=== PATIENT | female | born 1995 | race Caucasian/White ===

== ENCOUNTER 2021-09-29 18:21 | Emergency (ER) | payer MEDICAID, OTHER ==
[2021-09-29] MEDS ORDERED: Sodium Chloride 0.9% 1,000 ML IV ONE (19:19)
[2021-09-29] MEDS ORDERED: Ondansetron 4 MG/2 ML SDV IVPUSH ONE (19:20)
[2021-09-29 19:30] LABS: CHLORIDE,CL 105 mmol/L (98-107); SODIUM,NA 135 mmol/L (136-145)
[2021-09-29] MEDS ORDERED: Potassium Chloride 20 MEQ Tab.ER PO ONE ×2 (19:42→20:01)
--- NOTE | 2021-09-29 19:50 | EDM.PDOC ---
ED HPI GENERAL MEDICAL PROBLEM - General Chief Complaint: General Stated Complaint: fever, chills, sinus congestion Time Seen by Provider: 09/29/21 19:00 Source of Information: Reports: Patient History Limitations: Reports: No Limitations - History of Present Illness INITIAL COMMENTS - FREE TEXT/NARRATIVE: One week history of mild URI/cold symptoms and intermittent nausea. Headache. Developed low grade fever as high as 101.5 starting yesterday. No other reported changes. 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 Social & Family History - Tobacco Use Tobacco Use Status *Q: Former Tobacco User Years of Tobacco use: 3 Used Tobacco, but Quit: Yes Month/Year Tobacco Last Used: 1 - Caffeine Use Caffeine Use: Reports: Coffee, Energy Drinks, Soda - Recreational Drug Use Recreational Drug Use: No ED ROS GENERAL - Review of Systems Review Of Systems: See Below Constitutional: Reports: Fever. Denies: Chills, Malaise, Weakness, Fatigue, Night Sweats, Diaphoresis, Decreased Appetite HEENT: Reports: Rhinitis, Sinus Problem. Denies: Ear Pain, Eye Discharge, Eye Pain, Throat Pain, Throat Swelling Respiratory: Reports: No Symptoms. Denies: Shortness of Breath, Wheezing, Pleuritic Chest Pain, Cough, Sputum, Hemoptysis Cardiovascular: Reports: No Symptoms. Denies: Chest Pain, Lightheadedness GI/Abdominal: Reports: Nausea. Denies: Abdominal Pain, Constipation, Diarrhea, Melena, Vomiting : Reports: Other (some recent vaginal itching). Denies: Dysuria, Flank Pain, Frequency Musculoskeletal: Reports: No Symptoms Skin: Reports: No Symptoms Neurological: Reports: Headache. Denies: Dizziness, Numbness, Tremors, Trouble Speaking, Difficulty Walking, Change in Speech Psychiatric: Reports: No Symptoms Hematologic/Lymphatic: Reports: No Symptoms ED EXAM, GENERAL - Physical Exam Exam: See Below Exam Limited By: No Limitations General Appearance: Alert, WD/WN, No Apparent Distress Eye Exam: Bilateral Eye: EOMI, PERRL Ears: Normal External Exam, Normal Canal, Hearing Grossly Normal Nose: No: Nasal Deformity, Nasal Swelling, Nasal Drainage Throat/Mouth: Normal Inspection, Normal Lips, Normal Voice, No Airway Compromise Head: Atraumatic, Normocephalic Neck: Normal Inspection, Supple, Non-Tender, Full Range of Motion Respiratory/Chest: No Respiratory Distress, Lungs Clear, Normal Breath Sounds, No Accessory Muscle Use, Chest Non-Tender Cardiovascular: No Edema, No Murmur, Tachycardia GI/Abdominal: Normal Bowel Sounds, Soft, Non-Tender, No Distention (Female) Exam: Deferred Rectal (Female) Exam: Deferred Back Exam: No: CVA Tenderness (L), CVA Tenderness (R), Muscle Spasm, Paraspinal Tenderness, Vertebral Tenderness Extremities: Normal Inspection, Normal Range of Motion, Non-Tender, Normal Capillary Refill Neurological: Alert, Oriented, CN II-XII Intact, Normal Cognition, Normal Gait, No Motor/Sensory Deficits Psychiatric: Normal Affect, Normal Mood Skin Exam: Warm, Dry, Intact, Normal Color Course - Vital Signs Last Recorded V/S: Last Vital Signs Temp 37.4 C 09/29/21 18:43 Pulse 86 09/29/21 19:45 Resp 19 09/29/21 19:45 BP 115/70 09/29/21 19:45 Pulse Ox 100 09/29/21 19:45 - Orders/Labs/Meds Orders: Active Orders 24 hr Category Date Time Status Ang Head wo Cont [MR] Stat Exams 09/29/21 19:01 Stop Req Head wo Cont [CT] Stat Exams 09/29/21 19:01 Taken Head wo Cont [CT] Stat Exams 09/29/21 19:21 Ordered Potassium Chloride [Klor-Con 10] Med 09/29/21 21:00 Once 20 meq PO ONETIME ONE Isolation [COMM] Routine Oth 09/29/21 18:29 Active Isolation [COMM] Routine Oth 09/29/21 18:29 Active Medication Orders Potassium Chloride (Potassium Chloride 10 Meq Tab.Er) 20 meq PO ONETIME ONE Stop: 09/29/21 21:01 Last Admin: 09/29/21 20:47 Dose: 20 meq Documented by: Labs: Laboratory Tests 09/29/21 09/29/21 09/29/21 Range/Units 18:40 19:00 19:00 WBC 3.7 L (4.0-10.2) K/uL RBC 4.98 (3.77-5.09) M/uL Hgb 13.9 (11.7-15.5) g/dL Hct 42.0 (34.0-46.0) % MCV 84.3 (84.0-98.0) fL MCH 27.9 L (28.2-33.3) pg MCHC 33.1 (31.7-36.0) g/dL RDW 12.3 (11.2-14.1) % Plt Count 179 (150-350) K/uL Neut % (Auto) 64.7 (45.0-80.0) % Lymph % (Auto) 25.4 (10.0-50.0) % Mcnairy % (Auto) 9.6 (2.0-14.0) % Eos % (Auto) 0.3 (0.0-5.0) % Baso % (Auto) 0.0 (0.0-2.0) % Neut # (Auto) 2.42 (1.40-7.00) K/uL Lymph # (Auto) 0.95 (0.50-3.50) K/uL Mcnairy # (Auto) 0.36 (0.00-1.00) K/uL Eos # (Auto) 0.01 (0.00-0.50) K/uL Baso # (Auto) 0.00 (0.00-0.20) K/uL Sodium 135 L (136-145) mmol/L Potassium 3.0 L (3.5-5.1) mmol/L Chloride 105 (98-107) mmol/L Carbon Dioxide 15.0 L (21.0-32.0) mmol/L Anion Gap 18.0 H (7-15) meq/L BUN 11 (7-18) mg/dL Creatinine 0.88 (0.51-1.17) mg/dL Est Cr Clr Drug Dosing 93.38 mL/min Estimated GFR (MDRD) > 60 mL/min Glucose 122 H (70-99) mg/dL Lactic Acid (0.4-2.0) mmol/L Calcium 8.5 (8.5-10.1) mg/dL Magnesium 1.8 (1.8-2.4) mg/dL Total Bilirubin 0.2 (0.2-1.0) mg/dL AST 83 H (15-37) U/L ALT 136 H (12-78) U/L Alkaline Phosphatase 139 H (46-116) IU/L Total Protein 7.7 (6.4-8.2) g/dL Albumin 3.5 (3.4-5.0) g/dL Specimen Type Urine Color Urine Appearance Urine pH (5.0-9.0) Ur Specific [place] (1.005-1.030) Urine Protein (NEGATIVE) mg/dL Urine Glucose (UA) (NEGATIVE) mg/dL Urine Ketones (NEGATIVE) mg/dL Urine Occult Blood (NEGATIVE) Urine Nitrite (NEGATIVE) Urine Bilirubin (NEGATIVE) Urine Urobilinogen (0.2-1.0) E.U./dL Ur Leukocyte Esterase (NEGATIVE) Urine RBC Urine WBC Urinalysis Comment Urine HCG, Qual SARS-CoV-2 Ag (Rapid) Positive A (NEGATIVE) 09/29/21 09/29/21 09/29/21 Range/Units 19:00 20:20 20:20 WBC (4.0-10.2) K/uL RBC (3.77-5.09) M/uL Hgb (11.7-15.5) g/dL Hct (34.0-46.0) % MCV (84.0-98.0) fL MCH (28.2-33.3) pg MCHC (31.7-36.0) g/dL RDW (11.2-14.1) % Plt Count (150-350) K/uL Neut % (Auto) (45.0-80.0) % Lymph % (Auto) (10.0-50.0) % Mcnairy % (Auto) (2.0-14.0) % Eos % (Auto) (0.0-5.0) % Baso % (Auto) (0.0-2.0) % Neut # (Auto) (1.40-7.00) K/uL Lymph # (Auto) (0.50-3.50) K/uL [place] # (Auto) (0.00-1.00) K/uL Eos # (Auto) (0.00-0.50) K/uL Baso # (Auto) (0.00-0.20) K/uL Sodium (136-145) mmol/L Potassium (3.5-5.1) mmol/L Chloride (98-107) mmol/L Carbon Dioxide (21.0-32.0) mmol/L Anion Gap (7-15) meq/L BUN (7-18) mg/dL Creatinine (0.51-1.17) mg/dL Est Cr Clr Drug Dosing mL/min Estimated GFR (MDRD) mL/min Glucose (70-99) mg/dL Lactic Acid 0.7 (0.4-2.0) mmol/L Calcium (8.5-10.1) mg/dL Magnesium (1.8-2.4) mg/dL Total Bilirubin (0.2-1.0) mg/dL AST (15-37) U/L ALT (12-78) U/L Alkaline Phosphatase (46-116) IU/L Total Protein (6.4-8.2) g/dL Albumin (3.4-5.0) g/dL Specimen Type Urinvoid Urine Color Yellow Urine Appearance Cloudy Urine pH 6.0 (5.0-9.0) Ur Specific [place] 1.020 (1.005-1.030) Urine Protein Trace H (NEGATIVE) mg/dL Urine Glucose (UA) Negative (NEGATIVE) mg/dL Urine Ketones 40 H (NEGATIVE) mg/dL Urine Occult Blood Trace-intact H (NEGATIVE) Urine Nitrite Negative (NEGATIVE) Urine Bilirubin Small H (NEGATIVE) Urine Urobilinogen 0.2 (0.2-1.0) E.U./dL Ur Leukocyte Esterase Large H (NEGATIVE) Urine RBC Not Reportable Urine WBC Not Reportable Urinalysis Comment See note Urine HCG, Qual Negative SARS-CoV-2 Ag (Rapid) (NEGATIVE) Meds: Medications Generic Name Dose Route Start Last Admin Trade Name Freq PRN Reason Stop Dose Admin Potassium Chloride 20 meq 09/29/21 21:00 09/29/21 20:47 Potassium Chloride 10 Meq Tab.Er PO 09/29/21 21:01 20 meq ONETIME ONE Administration Discontinued Medications Generic Name Dose Route Start Last Admin Trade Name Dawna PRN Reason Stop Dose Admin Fluconazole 200 mg 09/29/21 20:13 09/29/21 20:21 Fluconazole 100 Mg Tab PO 09/29/21 20:14 200 mg ONETIME ONE Administration Sodium Chloride 1,000 mls @ 999 mls/hr 09/29/21 19:19 09/29/21 19:00 Normal Saline IV 09/29/21 20:19 999 mls/hr .BOLUS ONE Administration Ondansetron HCl 4 mg 09/29/21 19:20 09/29/21 19:29 Ondansetron 4 Mg/2 Ml Sdv IVPUSH 09/29/21 19:21 4 mg ONETIME ONE Administration Potassium Chloride 40 meq 09/29/21 19:42 09/29/21 19:48 Potassium Chloride 20 Meq Tab.Er PO 09/29/21 19:43 40 meq ONETIME ONE Administration Potassium Chloride 40 meq 09/29/21 20:01 09/29/21 20:46 Potassium Chloride 20 Meq Tab.Er PO 09/29/21 20:02 40 meq ONETIME ONE Administration - Re-Assessments/Exams Free Text/Narrative Re-Assessment/Exam: 09/29/21 19:44 Vital signs stable. Mildly tachycardic. Patient became anxious during blood draw/hyperventilated and complained of feeling faint/having fuzzy hearing and vision. Suspect vaso-vagal episode, but CT of head added to testing given patie nt's history and complains of visual changes. These symptoms resolved by time she returned from [place]. + for Covid. Influenza/RSV negative. WBC count depressed. K of 3.0 Some elevation of AST and ALT noted. Patient received IV fluid bolus/Zofran and PO KCl. Plan will be to send her home with Albuterol MDI and PRN Zofran. Precautions reviewed. To touch base with her [place] providers tomorrow and tell them she is Covid + To return as needed if she has sudden worsening symptoms. 09/29/21 20:56 CT shows no acute bleed/midline shift. If any concerns for redevelopment of venous thrombosis do develop patient will need MRV study in [place]. CT report reviewed with patient. She will be discharged after her next dose of potassium. Departure - Departure Time of Disposition: 20:58 Disposition: Home, Self-Care 01 Condition: Good Clinical Impression: COVID-19 virus infection, Hypokalemia - Discharge Information *PRESCRIPTION DRUG MONITORING PROGRAM REVIEWED*: Not Applicable *COPY OF PRESCRIPTION DRUG MONITORING REPORT IN PATIENT DIRK: Not Applicable Instructions: COVID-19 Frequently Asked Questions, Hypokalemia, 10 Things You Can Do to Manage Your COVID-19 Symptoms at Home - [facility] (06/14/2021) Referrals: PCP,Not In Area [Primary Care Provider] - Forms: ED Department Discharge Additional Instructions: Use your inhaler 1-2 puffs every 4-6 hours prn/as needed SOB/cough Use Zofran 1 every 6 hours prn nausea, dissolves under tongue Get your potassium level rechecked via your clinic tomorrow or Thursday. It was a little low tonight. Follow up as needed if you have worsening symptoms/increasing shortness of breath. Check in with your [place] providers tomorrow and advise them of your Covid + status. See if they have any additional instructions for you. Sepsis Event Note (ED) - Evaluation Sepsis Screening Result: No Definite Risk - Focused Exam Vital Signs: Vital Signs Temp Pulse Resp BP Pulse Ox 09/29/21 19:45 86 19 115/70 100 09/29/21 19:25 90 17 122/82 100 09/29/21 19:00 90 22 H 118/73 100 09/29/21 18:43 37.4 C 88 18 138/70 100 09/29/21 18:28 37.4 C 109 H 20 140/76 97 - My Orders Last 24 Hours: My Active Orders 09/29/21 18:29 Isolation [COMM] Routine Isolation [COMM] Routine 09/29/21 19:01 Ang Head wo Cont [MR] Stat Head wo Cont [CT] Stat 09/29/21 19:21 Head wo Cont [CT] Stat 09/29/21 21:00 Potassium Chloride [Klor-Con 10] 20 meq PO ONETIME ONE - Assessment/Plan Last 24 Hours: My Active Orders 09/29/21 18:29 Isolation [COMM] Routine Isolation [COMM] Routine 09/29/21 19:01 Ang Head wo Cont [MR] Stat Head wo Cont [CT] Stat 09/29/21 19:21 Head wo Cont [CT] Stat 09/29/21 21:00 Potassium Chloride [Klor-Con 10] 20 meq PO ONETIME ONE
[2021-09-29] MEDS ORDERED: Fluconazole 100 MG Tab PO ONE (20:13)
[2021-09-29] MEDS ORDERED: Potassium Chloride 10 MEQ Tab.ER PO ONE (21:00)
== END 2021-09-29 21:20 | disposition home or self-care (01) ==
LOC: LL.ED 18:21
DX: U07.1 COVID-19 (principal); E87.6 Hypokalemia; Z87.891 Personal history of nicotine dependence
CPT/HCPCS: 36415; 70450; 80053; 81001; 81002; 81025; 83605; 83735; 85025; 87426; 87804; 87807; 96374; 99284; 99284-25; A9270-GY; J2405; J7030